=== PATIENT | female | born 1960 | race Two or more races ===

== ENCOUNTER 2023-04-16 18:21 | Emergency (ER) | payer OTHER ==
[~2023-04-16] VITALS: Ht 165.1 cm; Wt 72.6 kg
== END 2023-04-16 21:17 | disposition home or self-care (01) ==
LOC: ER 18:21
DX: S52.501A Unspecified fracture of the lower end of right radius, initial encounter for closed fracture (principal); W19.XXXA Unspecified fall, initial encounter; Y93.9 Activity, unspecified; M54.50 Low back pain, unspecified; Z88.6 Allergy status to analgesic agent

== ENCOUNTER → 2023-04-27 | Outpatient (CLI) | payer OTHER | END | disposition home or self-care (01) | LOC: RAD 09:28 | PROVIDERS: ATTEND Orthopaedic Surgery | DX: S52.531A Colles' fracture of right radius, initial encounter for closed fracture (principal) ==

== ENCOUNTER 2023-05-25 11:13 | Outpatient (CLI) | payer OTHER | END 2023-05-25 11:19 | disposition home or self-care (01) | LOC: RAD 11:13 | PROVIDERS: ATTEND Orthopaedic Surgery | DX: S52.531D Colles' fracture of right radius, subsequent encounter for closed fracture with routine healing (principal) ==